=== PATIENT | male | born 1995 | race Caucasian/White ===

== ENCOUNTER → 2018-01-31 | Emergency (ER) | payer OTHER ==
[~2018-01-31] VITALS: Ht 172.7 cm; Wt 65.8 kg
[~2018-01-31] MED LIST: ALBUTEROL FS 2.5 MG/3 ML VIAL.NEB NEB ONE; ALBUTEROL FS 2.5 MG/3 ML VIAL.NEB ONE; IPRATROPIUM NEB FS 0.5 MG/2.5 ML AMPUL.NEB NEB ONE; IPRATROPIUM NEB FS 0.5 MG/2.5 ML AMPUL.NEB ONE; predniSONE 20 MG TABLET ONE; predniSONE 20 MG TABLET PO ONE
[2018-01-31 15:40] VITALS: BP 135/70
--- NOTE | 2018-01-31 16:25 | NUR ---
PT REFUSED CHEST XRAY, MADE CAMRYN KAHN AWARE.
== END ==
LOC: ER 15:48
DX: J45.909 Unspecified asthma, uncomplicated (principal); R06.02 Shortness of breath
CPT/HCPCS: A4606; Z7610

== ENCOUNTER 2019-01-07 07:14 | Emergency (ER) | payer OTHER ==
[~2019-01-07] VITALS: Ht 172.7 cm; Wt 65.8 kg
[2019-01-07 07:23] VITALS: BP 147/73
[2019-01-07] MEDS ORDERED: ALBUTEROL FS 2.5 MG/3 ML VIAL.NEB ONE (07:37)
[2019-01-07] MEDS ORDERED: ALBUTEROL FS 2.5 MG/3 ML VIAL.NEB NEB ONE (08:00)
== END 2019-01-07 07:54 | disposition home or self-care (01) ==
LOC: ER 07:14
DX: J45.901 Unspecified asthma with (acute) exacerbation (principal)